=== PATIENT | female | born 1970 | race Caucasian/White ===

== ENCOUNTER 2017-07-31 09:56 | Emergency (ER) | payer OTHER, BC ==
[2017-07-31] MEDS: KETOROLAC 60 MG/2 ML VIAL (J1885) IM (10:50)
== END 2017-07-31 11:10 | disposition home or self-care (01) ==
LOC: M ED 09:56
DX: M54.16 Radiculopathy, lumbar region (principal); K21.9 Gastro-esophageal reflux disease without esophagitis; F17.200 Nicotine dependence, unspecified, uncomplicated; Z98.84 Bariatric surgery status; Z91.040 Latex allergy status; J30.9 Allergic rhinitis, unspecified; Z79.899 Other long term (current) drug therapy
CPT/HCPCS: J1885

== ENCOUNTER → 2017-09-10 | Outpatient (REF) | payer OTHER ==
[2017-09-10 12:59] LABS: FERRITIN 118 NG/ML (8-252); IRON (FE) 127 UG/DL (50-170); PERCENT SATURATION 43.1 % (13.2-45.0); TOTAL IRON BINDING CAPACITY 295 UG/DL (250-450)
[2017-09-11 08:17] LABS: FOLATE > 24.0 NG/ML; VITAMIN B12 LEVEL 381 PG/ML
[2017-09-14 14:12] LABS: VITAMIN B1 LEVEL WHOLE BLOOD 205.7 nmol/L (66.5-200.0)
== END ==
LOC: M LAB REF 12:07
DX: E66.01 Morbid (severe) obesity due to excess calories (principal)
CPT/HCPCS: 82746

== ENCOUNTER → 2017-10-08 | Outpatient (CLI) | payer BC, OTHER ==
[2017-10-08 17:11] LABS: BASO # 0.1 10^3/uL (0.0-0.2); BASO % 0.9 % (0.0-1.0); EOS # 0.2 10^3/uL (0.0-0.50); EOS % 1.5 % (0.0-3.0); HEMATOCRIT 45.9 % (36.0-47.0); HEMOGLOBIN 15.4 g/dl (12.0-15.5); IMMATURE GRANULOCYTE % 0.5 % (0-3.0); LYMPH # 2.8 10^3/uL (1.5-4.5); LYMPH % 24.3 % (24.0-44.0); MEAN CORPUSCULAR HEMOGLOBIN 30.7 pg (27.0-33.0); MEAN CORPUSCULAR HGB CONC 33.6 g/dl (32.0-36.5); MEAN CORPUSCULAR VOLUME 91.6 fl (80.0-96.0); MONO # 0.9 10^3/uL (0.0-0.8); MONO % 7.4 % (0.0-5.0); NEUTROPHILS # 7.6 10^3/uL (1.8-7.7); NEUTROPHILS % 65.4 % (36.0-66.0); PLATELET COUNT, AUTOMATED 402 10^3/uL (150-450); RED BLOOD COUNT 5.01 10^6/uL (4.00-5.40); RED CELL DISTRIBUTION WIDTH 13.2 % (11.5-14.5); WHITE BLOOD COUNT 11.7 10^3/uL (4.0-10.0)
[2017-10-08 17:24] LABS: ALBUMIN 3.8 GM/DL (3.2-5.2); ALKALINE PHOSPHATASE 85 U/L (45-117); ALT/SGPT 22 U/L (12-78); AMYLASE 51 U/L (25-115); ANION GAP 8 MEQ/L (8-16); AST/SGOT 12 U/L (7-37); BILIRUBIN,TOTAL 0.4 MG/DL (0.2-1.0); BLOOD UREA NITROGEN 11 MG/DL (7-18); CALCIUM LEVEL 9.5 MG/DL (8.5-10.1); CARBON DIOXIDE LEVEL 24 MEQ/L (21-32); CHLORIDE LEVEL 107 MEQ/L (98-107); CREATININE FOR GFR 0.82 MG/DL (0.55-1.30); GLOMERULAR FILTRATION RATE > 60.0 (>58); GLUCOSE, FASTING 116 MG/DL (70-100); LIPASE 112 U/L (73-393); POTASSIUM SERUM 4.2 MEQ/L (3.5-5.1); SODIUM LEVEL 139 MEQ/L (136-145); TOTAL PROTEIN 7.6 GM/DL (6.4-8.2)
== END ==
LOC: M WUC 12:11
DX: R10.13 Epigastric pain (principal); R11.0 Nausea
CPT/HCPCS: 82150

== ENCOUNTER 2018-12-13 14:50 | Emergency (ER) | payer OTHER ==
[~2018-12-13] VITALS: Ht 167.6 cm; Wt 102.0 kg
[~2018-12-13 14:50] MED LIST: BIOT1CAP2 PO; CETI10TA PO; FLUTISP; PANT40TA3; ROBA500T PO; VENL75CA47; VITA100067 PO; VITATAB11 PO
[2018-12-13] MEDS ORDERED: RIZA10TA4 (14:59)
[2018-12-13] MEDS ORDERED: EXCETAB22 PO (14:59)
[2018-12-13] MEDS ORDERED: POTA8CAP10 PO (14:59)
--- NOTE | 2018-12-13 18:55 | REP ---
REASON FOR EXAM: Twisting injury. COMPARISON: None. FINDINGS: The compartments are symmetric and relatively well maintained. There is no acute fracture or destructive osseous lesion. Electronically Signed by Emigdio Field DO 12/13/2018 07:41 P
[2018-12-13 19:35] VITALS: BP 144/95
== END 2018-12-13 19:44 | disposition home or self-care (01) ==
LOC: M ED 14:50
DX: S83.91XA Sprain of unspecified site of right knee, initial encounter (principal); W19.XXXA Unspecified fall, initial encounter; Y92.9 Unspecified place or not applicable; Y93.01 Activity, walking, marching and hiking; Y99.9 Unspecified external cause status; R51 Headache; J30.2 Other seasonal allergic rhinitis; Z98.84 Bariatric surgery status; Z79.82 Long term (current) use of aspirin; Z79.899 Other long term (current) drug therapy; Z91.040 Latex allergy status

== ENCOUNTER → 2019-03-29 | Outpatient (CLI) | payer OTHER ==
[~2019-03-29] MED LIST changes: +EXCETAB22 PO; +POTA8CAP10 PO; +RIZA10TA58
--- NOTE | 2019-03-29 10:53 | REP ---
Seven views cervical spine: 03/29/2019. Indication: Neck pain. Comparison: 11/12/2014. Findings: There is no acute fracture, subluxation or dislocation. There is straightening of the cervical lordosis. Spondylosis is noted most pronounced at C4/C5 and C5/C6. No erosive osseous lesions are detected. The greatest neural foraminal narrowing is on the left at C5/C6. No significant spinal canal narrowing is detected. The prevertebral soft tissues are unremarkable. Impression: No acute osseous injury of the cervical spine. Electronically Signed by Hugo Balderrama DO 03/29/2019 10:45 A
== END ==
LOC: M WUC 10:17
PROVIDERS: ATTEND Nurse Practitioner Adult Health
DX: M54.2 Cervicalgia (principal)

== ENCOUNTER 2019-05-11 10:39 | Emergency (ER) | payer BC, OTHER ==
[~2019-05-11] VITALS: Ht 167.6 cm; Wt 108.3 kg
[2019-05-11] MEDS ORDERED: DULO1CAP5 (10:47)
[2019-05-11] MEDS ORDERED: CELE1CAP7 (10:47)
[2019-05-11] MEDS ORDERED: ACETAMINOPHEN 500 MG TAB PO ONE (11:15)
[2019-05-11 12:16] VITALS: BP 141/80
--- NOTE | 2019-05-11 12:26 | REP ---
RIGHT ANKLE, FOUR VIEWS: There is no evidence of an acute fracture, dislocation or intrinsic bone disease. There is posterior and inferior calcaneal spurring. The ankle mortise is anatomic. IMPRESSION: No fracture or dislocation. Electronically Signed by Hieu Watt MD 05/11/2019 07:58 P
--- NOTE | 2019-05-11 12:26 | REP ---
RIGHT LOWER LEG, AP AND LATERAL: There is no evidence of an acute fracture, dislocation or intrinsic bone disease. IMPRESSION: No fracture or dislocation. Electronically Signed by Hieu Watt MD 05/11/2019 07:58 P
== END 2019-05-11 12:29 | disposition home or self-care (01) ==
LOC: M ED 10:39
DX: S93.401A Sprain of unspecified ligament of right ankle, initial encounter (principal); X50.0XXA Overexertion from strenuous movement or load, initial encounter; Y92.018 Other place in single-family (private) house as the place of occurrence of the external cause; G47.33 Obstructive sleep apnea (adult) (pediatric); F41.9 Anxiety disorder, unspecified; J30.2 Other seasonal allergic rhinitis; Z91.040 Latex allergy status; Z79.899 Other long term (current) drug therapy

== ENCOUNTER → 2019-08-23 | Outpatient (REF) | payer OTHER ==
[~2019-08-23] MED LIST changes: +CELE1CAP7; +DULO1CAP5
[2019-08-23 13:22] LABS: IRON (FE) 91 UG/DL (50-170)
[2019-08-23 13:34] LABS: VITAMIN B12 LEVEL 433 PG/ML (247-911)
== END ==
LOC: M LAB REF 12:33
PROVIDERS: ATTEND Internal Medicine
DX: K91.2 Postsurgical malabsorption, not elsewhere classified (principal); Z98.84 Bariatric surgery status

== ENCOUNTER → 2020-10-13 | Outpatient (CLI) | payer OTHER ==
[~2020-10-13] MED LIST changes: +CELE1CAP7 PO; +DULO1CAP5 PO; +ENAL5TA PO; +FLUT1LOT NARES; +PANT40TA29; +PANT40TA29 PO; -PANT40TA3; +RIZA10TA2 PO
== END ==
LOC: M LABSMTC 09:10
PROVIDERS: ATTEND Anesthesiology
DX: Z20.828 Contact with and (suspected) exposure to other viral communicable diseases (principal); Z11.59 Encounter for screening for other viral diseases

== ENCOUNTER 2020-10-18 09:03 | Day surgery (SDC) | payer BC, OTHER ==
[~2020-10-18] VITALS: Ht 167.6 cm; Wt 107.0 kg
[~2020-10-18 09:03] MED LIST changes: +NS 1,000 ML IV ONE
[2020-10-18] MEDS ORDERED: LIDOCAINE 2% 100MG/5ML SDV (FOR ANES.) As Ordered ONE (10:44)
[2020-10-18] MEDS ORDERED: propofoL 200 MG/20 ML VIAL As Ordered ONE ×2 (10:44→10:45)
--- NOTE | 2020-10-18 10:57 | ROOR ---
Patient Name: Aden Ramsay Procedure Date: 10/18/2020 10:40 AM Date of : 1970 Age: 50 Room: [facility] Gender: Female Note Status: Finalized Procedure: Colonoscopy Indications: Screening patient at increased risk: Family history of 1st-degree relative with colorectal cancer at age 60 years (or older) Providers: Ajith Navarro Jr, MD Referring MD: Shey Ferro NP Requesting Provider: Medicines: Propofol per Anesthesia Complications: No immediate complications. Procedure: Pre-Anesthesia Assessment: - Prior to the procedure, a History and Physical was performed, and patient medications and allergies were reviewed. The patient is competent. The risks and benefits of the procedure and the sedation options and risks were discussed with the patient. All questions were answered and informed consent was obtained. Patient identification and proposed procedure were verified by the physician and the nurse in the pre-procedure area and in the procedure room. Mental Status Examination: alert and oriented. Airway Examination: normal oropharyngeal airway and neck mobility. Respiratory Examination: clear to auscultation. CV Examination: normal. ASA Grade Assessment: II - A patient with mild systemic disease. After reviewing the risks and benefits, the patient was deemed in satisfactory condition to undergo the procedure. The anesthesia plan was to use moderate sedation / analgesia (conscious sedation). Immediately prior to administration of medications, the patient was re-assessed for adequacy to receive sedatives. The heart rate, respiratory rate, oxygen saturations, blood pressure, adequacy of pulmonary ventilation, and response to care were monitored throughout the procedure. The physical status of the patient was re-assessed after the procedure. The Colonoscope was introduced through the anus and advanced to the cecum, identified by appendiceal orifice and ileocecal valve. The colonoscopy was performed without difficulty. The patient tolerated the procedure well. The quality of the bowel preparation was adequate. Findings: The rectum, recto-sigmoid colon, descending colon, transverse colon, ascending colon, cecum, appendiceal orifice and ileocecal valve appeared normal. A few small and large-mouthed diverticula were found in the sigmoid colon. Impression: - The rectum, recto-sigmoid colon, descending colon, transverse colon, ascending colon, cecum, appendiceal orifice and ileocecal valve are normal. - Diverticulosis in the sigmoid colon. - No specimens collected. Recommendation: - Discharge patient to home (ambulatory). - Repeat colonoscopy in 5 years for screening purposes. Procedure Code(s): --- Professional --- 33306, Colonoscopy, flexible; diagnostic, including collection of specimen(s) by brushing or washing, when performed (separate procedure) Diagnosis Code(s): --- Professional --- Z80.0, Family history of malignant neoplasm of digestive organs K57.30, Diverticulosis of large intestine without perforation or abscess without bleeding CPT copyright 2019 [employer]. All rights reserved. The codes documented in this report are preliminary and upon rn birthing review may be revised to meet current compliance requirements. Ajith Navarro MD Ajith Navarro Jr, MD 10/18/2020 10:57:20 AM Electronically signed by Ajith Navarro Jr, MD Number of Addenda: 0 Note Initiated On: 10/18/2020 10:40 AM Estimated Blood Loss: Estimated blood loss: none.
[2020-10-18 11:25] VITALS: BP 172/98
== END 2020-10-18 11:31 | disposition home or self-care (01) ==
LOC: M OPP 09:03
PROVIDERS: ATTEND Surgery
DX: Z12.11 Encounter for screening for malignant neoplasm of colon (principal); Z80.0 Family history of malignant neoplasm of digestive organs; K57.30 Diverticulosis of large intestine without perforation or abscess without bleeding; G47.30 Sleep apnea, unspecified; Z79.899 Other long term (current) drug therapy; Z91.040 Latex allergy status; Z87.891 Personal history of nicotine dependence

== ENCOUNTER 2020-12-27 10:18 | Emergency (ER) | payer OTHER, BC ==
[~2020-12-27] VITALS: Ht 170.2 cm; Wt 104.4 kg
[~2020-12-27 10:18] MED LIST changes: -NS 1,000 ML IV ONE
--- NOTE | 2020-12-27 13:42 | REP ---
INDICATION: trauma, injury r/o subacute fx COMPARISON: None. TECHNIQUE: Four views right wrist. FINDINGS: There is no evidence of acute fracture, dislocation, or intrinsic bone disease.The joint spaces are unremarkable. IMPRESSION: No fracture or dislocation. <Electronically signed by Hieu Watt > 12/27/20 [id number]
[2020-12-27 15:04] VITALS: BP 127/64
== END 2020-12-27 15:05 | disposition home or self-care (01) ==
LOC: M ED 10:18
DX: S66.911A Strain of unspecified muscle, fascia and tendon at wrist and hand level, right hand, initial encounter (principal); X50.0XXA Overexertion from strenuous movement or load, initial encounter; Y92.9 Unspecified place or not applicable; Y93.9 Activity, unspecified; Y99.0 Civilian activity done for income or pay; Z91.040 Latex allergy status; Z79.899 Other long term (current) drug therapy

== ENCOUNTER → 2021-01-08 | Outpatient (REF) | payer OTHER, BC ==
[2021-01-08 17:00] LABS: BASO # 0.1 10^3/uL (0.0-0.2); BASO % 0.9 % (0.0-1.0); EOS # 0.2 10^3/uL (0.0-0.5); EOS % 2.2 % (0.0-3.0); HEMATOCRIT 42.9 % (36.0-47.0); HEMOGLOBIN 13.5 g/dl (12.0-15.5); LYMPH # 2.6 10^3/uL (1.5-5.0); LYMPH % 28.1 % (24.0-44.0); MEAN CORPUSCULAR HEMOGLOBIN 28.5 pg (27.0-33.0); MEAN CORPUSCULAR HGB CONC 31.5 g/dl (32.0-36.5); MEAN CORPUSCULAR VOLUME 90.7 fl (80.0-96.0); MONO # 0.6 10^3/uL (0.0-0.8); MONO % 6.3 % (2.0-8.0); NEUTROPHILS # 5.8 10^3/uL (1.5-8.5); NEUTROPHILS % 61.8 % (36.0-66.0); PLATELET COUNT, AUTOMATED 451 10^3/uL (150-450); RED BLOOD COUNT 4.73 10^6/uL (4.00-5.40); WHITE BLOOD COUNT 9.4 10^3/uL (4.0-10.0)
[2021-01-08 17:33] LABS: ALBUMIN 3.4 GM/DL (3.2-5.2); ALT/SGPT 27 U/L (12-78); BILIRUBIN,TOTAL 0.4 MG/DL (0.2-1.0); BLOOD UREA NITROGEN 10 MG/DL (7-18); CALCIUM LEVEL 9.1 MG/DL (8.5-10.1); CARBON DIOXIDE LEVEL 26 MEQ/L (21-32); CHLORIDE LEVEL 106 MEQ/L (98-107); CREATININE FOR GFR 0.91 MG/DL (0.55-1.30); GLOMERULAR FILTRATION RATE > 60.0 (>51); GLUCOSE, FASTING 129 MG/DL (70-100); IRON (FE) 94 UG/DL (50-170); MAGNESIUM LEVEL 2.1 MG/DL (1.8-2.4); POTASSIUM SERUM 4.6 MEQ/L (3.5-5.1); SODIUM LEVEL 137 MEQ/L (136-145); TOTAL PROTEIN 7.3 GM/DL (6.4-8.2)
[2021-01-08 17:38] LABS: TOTAL 25(OH) VITAMIN D 20.7 NG/ML (30.0-100.0); VITAMIN B12 LEVEL 427 PG/ML (247-911)
[2021-01-08 17:51] LABS: HEMOGLOBIN A1c 6.7 %
== END ==
LOC: M LAB REF 16:28
PROVIDERS: ATTEND Nurse Practitioner Adult Health
DX: Z98.84 Bariatric surgery status (principal); I10 Essential (primary) hypertension; R73.09 Other abnormal glucose; D51.9 Vitamin B12 deficiency anemia, unspecified; E55.9 Vitamin D deficiency, unspecified

== ENCOUNTER → 2021-08-26 | Outpatient (REF) | payer OTHER, BC | LOC: M LAB REF 16:32 | PROVIDERS: ATTEND Nurse Practitioner Adult Health | DX: E55.9 Vitamin D deficiency, unspecified (principal); Z98.84 Bariatric surgery status ==

== ENCOUNTER 2021-09-27 13:15 | Emergency (ER) | payer BC, OTHER ==
[~2021-09-27] VITALS: Ht 167.6 cm; Wt 113.2 kg
[2021-09-27] MEDS ORDERED: PRED20TA PO (16:30)
[2021-09-27] MEDS ORDERED: ULTR50TA8 PO (16:30)
[2021-09-27] MEDS ORDERED: METH-1164 PO (16:30)
[2021-09-27 16:35] VITALS: BP 145/96
== END 2021-09-27 16:40 | disposition home or self-care (01) ==
LOC: M ED 13:15
DX: M54.50 Low back pain, unspecified (principal); M54.30 Sciatica, unspecified side; M62.830 Muscle spasm of back; Z98.84 Bariatric surgery status; F41.9 Anxiety disorder, unspecified; I10 Essential (primary) hypertension; G47.33 Obstructive sleep apnea (adult) (pediatric); Z91.040 Latex allergy status; Z79.899 Other long term (current) drug therapy

== ENCOUNTER 2021-11-12 17:04 | Emergency (ER) | payer OTHER ==
[~2021-11-12] VITALS: Ht 167.6 cm; Wt 111.2 kg
[~2021-11-12 17:04] MED LIST changes: +METH-1164 PO; +PRED20TA PO; +ULTR50TA8 PO
[2021-11-12 18:16] VITALS: BP 178/108
== END 2021-11-12 18:20 | disposition home or self-care (01) ==
LOC: M ED 17:04
DX: M25.531 Pain in right wrist (principal); E11.9 Type 2 diabetes mellitus without complications; I10 Essential (primary) hypertension; K21.9 Gastro-esophageal reflux disease without esophagitis; Z98.84 Bariatric surgery status; Z91.040 Latex allergy status; Z79.899 Other long term (current) drug therapy

== ENCOUNTER 2021-12-12 21:15 | Emergency (ER) | payer OTHER ==
[~2021-12-12] VITALS: Ht 167.6 cm; Wt 105.5 kg
[2021-12-13] MEDS ORDERED: ACETAMINOPHEN 325 MG TAB PO ONE (08:55)
[2021-12-13] MEDS ORDERED: methocarbamoL 500 MG TAB PO ONE (09:05)
[2021-12-13] MEDS ORDERED: METH-1164 PO (09:17)
[2021-12-13 09:34] VITALS: BP 117/75
== END 2021-12-13 09:35 | disposition home or self-care (01) ==
LOC: M ED 21:15
DX: S13.4XXA Sprain of ligaments of cervical spine, initial encounter (principal); S80.02XA Contusion of left knee, initial encounter; S80.01XA Contusion of right knee, initial encounter; S06.0X0A Concussion without loss of consciousness, initial encounter; W17.89XA Other fall from one level to another, initial encounter; Y92.9 Unspecified place or not applicable; Y93.9 Activity, unspecified; Y99.0 Civilian activity done for income or pay

== ENCOUNTER → 2023-09-23 | Outpatient (REF) | payer OTHER ==
[~2023-09-23] MED LIST changes: -CELE1CAP7; -CELE1CAP7 PO; +CELE1CAP99; +CELE1CAP99 PO; +ENAL1TAB48 PO; -ENAL5TA PO
[2023-09-23 17:20] LABS: PHOSPHORUS LEVEL 4.1 MG/DL (2.5-4.9)
[2023-09-23 17:21] LABS: TOTAL 25(OH) VITAMIN D 25.2 NG/ML (20.0-100.0)
[2023-09-23 17:22] LABS: PERCENT SATURATION 30.6 % (13.2-45.0)
[2023-09-23 17:28] LABS: FOLATE 22.7 NG/ML (>5.4)
[2023-09-29 16:09] LABS: VITAMIN A, RETINOL LEVEL 30.4 ug/dL (20.1-62.0); VITAMIN B1 LEVEL WHOLE BLOOD 165.3 nmol/L (66.5-200.0)
== END ==
LOC: M LAB REF 16:42
PROVIDERS: ATTEND Nurse Practitioner Adult Health
DX: Z98.84 Bariatric surgery status (principal)

== ENCOUNTER → 2024-06-30 | Outpatient (REF) | payer BC, OTHER ==
[2024-06-30 14:48] LABS: IRON (FE) 93 UG/DL (50-170); PERCENT SATURATION 37.3 % (13.2-45.0); TOTAL IRON BINDING CAPACITY 249 UG/DL (250-425)
[2024-06-30 14:50] LABS: FERRITIN 420.1 NG/ML (7.3-270.7)
[2024-06-30 14:52] LABS: FOLATE > 24.0 NG/ML (>5.4)
[2024-06-30 14:53] LABS: VITAMIN B12 LEVEL 1765 PG/ML (211-911)
[2024-06-30 14:58] LABS: TOTAL 25(OH) VITAMIN D 61.5 NG/ML (20.0-100.0)
== END ==
LOC: M LAB REF 12:42
PROVIDERS: ATTEND Nurse Practitioner Adult Health
DX: Z98.84 Bariatric surgery status (principal)

== ENCOUNTER → 2024-06-30 | Outpatient (CLI) | payer BC, OTHER | LOC: M WUC 10:24 | PROVIDERS: ATTEND Nurse Practitioner Adult Health | DX: J06.9 Acute upper respiratory infection, unspecified (principal) ==

== ENCOUNTER 2025-04-16 08:45 | Emergency (ER) | payer BC, OTHER ==
[~2025-04-16] VITALS: Ht 167.6 cm; Wt 95.8 kg
[2025-04-16 09:39] LABS: BASO # 0.1 10^3/uL (0.0-0.2); BASO % 1.1 % (0.0-1.0); EOS # 0.2 10^3/uL (0.0-0.5); EOS % 2.4 % (0.0-3.0); LYMPH # 1.9 10^3/uL (1.5-5.0); LYMPH % 23.2 % (24.0-44.0); MONO # 0.5 10^3/uL (0.0-0.8); MONO % 6.2 % (2.0-8.0); NEUTROPHILS # 5.6 10^3/uL (1.5-8.5); NEUTROPHILS % 66.9 % (36.0-66.0); PLATELET COUNT, AUTOMATED 333 10^3/uL (150-450)
[2025-04-16 10:01] LABS: CALCIUM LEVEL 8.5 MG/DL (8.5-10.1); CARBON DIOXIDE LEVEL 26.0 MMOL/L (20-31); CHLORIDE LEVEL 107.0 MMOL/L (98-107); CREATININE FOR GFR 0.81 MG/DL (0.55-1.30); GLOMERULAR FILTRATION RATE 86.2 (>51); POTASSIUM SERUM 4.1 MMOL/L (3.5-5.1); SODIUM LEVEL 141.0 MMOL/L (136-145)
[2025-04-16] MEDS ORDERED: ISOVUE-370 76% 100 ML VIAL As Ordered ONE (11:23)
[2025-04-16 11:35] LABS: C REACTIVE PROTEIN QUANTITATIV 2.4 MG/DL (<1.0)
[2025-04-16] MEDS: KETOROLAC 30 MG/ML 1 ML VIAL IV ONE (12:14)
[2025-04-16] MEDS: AMPICILLIN SOD/SULBACTAM SOD 3 GM in DEXTROSE 5% (D5W) MINI-BAG PLU 100 ML IV ONE (13:02)
[2025-04-16] MEDS ORDERED: TIZA4CAP PO (13:09)
[2025-04-16] MEDS ORDERED: AMOX875T2 PO (13:09)
[2025-04-16 14:00] VITALS: BP 136/80; TEMP 97.9; O2SAT 93
== END 2025-04-16 14:14 | disposition home or self-care (01) ==
LOC: M ED 08:45
DX: K04.7 Periapical abscess without sinus (principal); E11.9 Type 2 diabetes mellitus without complications; I10 Essential (primary) hypertension; G47.33 Obstructive sleep apnea (adult) (pediatric); Z98.84 Bariatric surgery status; Z91.040 Latex allergy status; Z79.899 Other long term (current) drug therapy
CPT/HCPCS: 70491; 80048; 85025; 85652; 86140; 96365; 96375; 99284; J0295; J1885; Q9967

== ENCOUNTER → 2025-04-21 | Outpatient (CLI) | payer OTHER, BC ==
[~2025-04-21] MED LIST changes: +AMOX875T2 PO; +TIZA4CAP PO
[2025-04-21 13:41] LABS: CALCIUM LEVEL 8.7 MG/DL (8.5-10.1); CARBON DIOXIDE LEVEL 29 MMOL/L (20-31); CHLORIDE LEVEL 108 MMOL/L (98-107); CREATININE FOR GFR 0.74 MG/DL (0.55-1.30); GLOMERULAR FILTRATION RATE > 90.0 (>51); POTASSIUM SERUM 3.9 MMOL/L (3.5-5.1); SODIUM LEVEL 145 MMOL/L (136-145)
== END ==
LOC: M LAB 12:06
PROVIDERS: ATTEND Orthopaedic Surgery
DX: I10 Essential (primary) hypertension (principal)